=== PATIENT | male | born 1935 | race Caucasian/White ===

== ENCOUNTER 2023-06-01 13:20 | Inpatient (IN) | payer MEDICARE, OTHER ==
[~2023-06-01] VITALS: Ht 162.6 cm; Wt 59.4 kg
[2023-06-01] MEDS ORDERED: AMIN30LI2 PO (14:14)
[2023-06-01] MEDS ORDERED: ACET-2030 PO (14:14)
[2023-06-01] MEDS ORDERED: FERR-56 PO (14:14)
[2023-06-01] MEDS ORDERED: BISA10SU61 RC (14:14)
[2023-06-01] MEDS ORDERED: NA P133E RC (14:14)
[2023-06-01] MEDS ORDERED: DEXT38GE12 PO (14:14)
[2023-06-01] MEDS ORDERED: METF-442 PO (14:14)
[2023-06-01] MEDS ORDERED: ERGOCALCIFEROL PO (14:14)
[2023-06-01] MEDS ORDERED: MULT-594 PO (14:14)
[2023-06-01] MEDS ORDERED: OMEP20CA15 PO (14:14)
[2023-06-01] MEDS ORDERED: MAGN400O6 PO (14:14)
[2023-06-01] MEDS ORDERED: ACET325C7 PO (14:14)
[2023-06-01] MEDS ORDERED: ASCO500C18 PO (14:14)
[2023-06-01] MEDS ORDERED: AMLO-212 PO (14:14)
[2023-06-01] MEDS ORDERED: MIRT-121 PO (14:14)
[2023-06-01] MEDS ORDERED: ACET-2154 PO (14:14)
[2023-06-01] MEDS ORDERED: HC A30CR11 RC (14:14)
[2023-06-01 14:23] LABS: BASOPHILS # (AUTO) 0.1 K/UL (0.0-0.2); BASOPHILS % (AUTO) 1.2 % (0.0-2.0); EOSINOPHILS % (AUTO) 0.1 % (0.0-7.0); HEMATOCRIT 39.9 % (36.7-47.1); HEMOGLOBIN 13.5 g/dL (12.5-16.3); LYMPHOCYTES # (AUTO) 0.8 K/uL (0.8-4.8); LYMPHOCYTES % (AUTO) 16.9 % (20.5-51.5); MEAN CORPUSCULAR HEMOGLOBIN 31.4 uug (23.8-33.4); MEAN CORPUSCULAR HGB CONC 34 g/dL (32.5-36.3); MEAN CORPUSCULAR VOLUME 92.7 fL (73.0-96.2); MONOCYTES # (AUTO) 0.4 K/uL (0.1-1.30); MONOCYTES % (AUTO) 8.3 % (0.0-11.0); NEUTROPHILS # (AUTO) 3.3 K/uL (1.8-8.9); NEUTROPHILS % (AUTO) 73.5 % (38.5-71.5); PLATELET COUNT (AUTO) 118 K/uL (152-348); RED CELL DISTRIBUTION WIDTH 13.6 % (12.1-16.2); WHITE BLOOD COUNT (AUTO) 4.5 K/uL (3.6-10.2)
[2023-06-01 14:43] LABS: CALCIUM 9.2 mg/dL (8.5-10.1); CARBON DIOXIDE 23 mmol/L (21-32); CHLORIDE 101 mmol/L (98-107); CREATININE 1.5 mg/dL (0.6-1.3); GLUCOSE 119 mg/dL (74-106); POTASSIUM 4.2 mmol/L (3.5-5.1); SODIUM SERUM 135 mmol/L (136-145); UREA NITROGEN, BLOOD 25 mg/dL (7-18)
[2023-06-01] MEDS ORDERED: IBUPROFEN 400 MG TABLET PO ONE (14:45)
[2023-06-01 14:46] LABS: DIFFERENTIAL COMMENT 1
[2023-06-01] MEDS ORDERED: IBUPROFEN 400 MG TABLET ONE (14:48)
[2023-06-01 14:49] LABS: ETHANOL < 3 MG/DL (0-10)
[2023-06-01 14:57] LABS: ACETAMINOPHEN 6.8 ug/mL (10-30); ALANINE AMINOTRANSFERASE 16 U/L (16-63); ALKALINE PHOSPHATASE 153 U/L (50-136); ASPARTATE AMINOTRANSFERASE 35 U/L (15-37); BILIRUBIN,DIRECT 0.5 mg/dL (0.0-0.2); BILIRUBIN,TOTAL 1.1 mg/dL (0.2-1.0); TOTAL PROTEIN, SERUM 7.1 g/dL (6.4-8.2)
[2023-06-01 15:19] LABS: MAGNESIUM 1.5 mg/dL (1.8-2.4)
[2023-06-01 15:26] LABS: *BLOOD, URINE 1+ (NEGATIVE); *COLOR,URINE YELLOW (YELLOW); *KETONES,URINE TRACE (NEGATIVE); *UROBILINOGEN,URINE >=8.0 E.U./dl (NORMAL); LEUKOCYTE ESTERASE ,URINE 1+ (NEGATIVE); NITRITE, URINE NEGATIVE (NEGATIVE); PH,URINE 5.5 (5.0-8.0); UGLUCOSE NEGATIVE (NEGATIVE)
[2023-06-01 15:35] LABS: *PROTEIN,URINE 3+ (NEGATIVE)
[2023-06-01 15:36] LABS: *BILIRUBIN,URIN 1+ (NEGATIVE); *CLARITY,URINE CLOUDY (CLEAR)
[2023-06-01 15:45] LABS: *AMPHETAMINE, URINE NEGATIVE (NEGATIVE); *BARBITURATE, URINE NEGATIVE (NEGATIVE); *CANNABINOID, URINE NEGATIVE (NEGATIVE); *COCCAINE, URINE NEGATIVE (NEGATIVE); *OPIATE, URINE NEGATIVE (NEGATIVE); *PHENCYCLIDINE SCREEN,URINE NEGATIVE (NEGATIVE)
[2023-06-01] MEDS ORDERED: CYANOCOBALAMIN 1000 MCG/ML VIAL IM ONE (15:45)
[2023-06-01] MEDS ORDERED: MAGNESIUM CHLORIDE 64 MG TABLET.SA PO SCH (15:45)
[2023-06-01 15:46] LABS: BACTERIA,URINE MANY /HPF (NONE SEEN); SQUAMOUS EPITHELIAL CELL,UR FEW /HPF (NONE SEEN); WBC,URINE TNTC /HPF (0-3)
[2023-06-01 15:57] LABS: *BENZODIAZEPINE, URINE NEGATIVE (NEGATIVE)
[2023-06-01 15:58] LABS: FENTANYL, URINE NEGATIVE (NEGATIVE)
[2023-06-01] MEDS ORDERED: CYANOCOBALAMIN 1000 MCG/ML VIAL ONE (15:59)
[2023-06-01] MEDS ORDERED: MAG HYDROX/AL HYDROX/SIMETH 30 ML LIQUID UDC PO PRN (17:45)
[2023-06-01] MEDS ORDERED: LORAZEPAM 0.5 MG TABLET PO PRN (17:45)
[2023-06-01 18:36] VITALS: BP 121/62; TEMP 98; O2SAT 98
[2023-06-01 20:00] VITALS: BP 106/64; TEMP 97.7; O2SAT 97
[2023-06-01] MEDS ORDERED: BISACODYL 10 MG SUPP.RECT RC PRN (21:00)
[2023-06-01] MEDS: ZOLPIDEM 5 MG TABLET PO PRN (21:20)
[2023-06-02] MEDS: PANTOPRAZOLE SODIUM 40 MG TABLET.DR PO SCH (06:58)
[2023-06-02 08:04] VITALS: BP 142/81; TEMP 98.1; O2SAT 96
[2023-06-02 08:49] LABS: MAGNESIUM 1.5 mg/dL (1.8-2.4)
[2023-06-02 08:52] LABS: ALANINE AMINOTRANSFERASE 28 U/L (16-63); ALBUMIN 2.8 g/dL (3.4-5.0); ALKALINE PHOSPHATASE 130 U/L (50-136); ASPARTATE AMINOTRANSFERASE 36 U/L (15-37); BILIRUBIN,TOTAL 1.1 mg/dL (0.2-1.0); CALCIUM 8.4 mg/dL (8.5-10.1); CARBON DIOXIDE 26 mmol/L (21-32); CHLORIDE 101 mmol/L (98-107); CREATININE 1.4 mg/dL (0.6-1.3); GLUCOSE 117 mg/dL (74-106); POTASSIUM 3.8 mmol/L (3.5-5.1); SODIUM SERUM 136 mmol/L (136-145); TOTAL PROTEIN, SERUM 6.8 g/dL (6.4-8.2); UREA NITROGEN, BLOOD 25 mg/dL (7-18)
[2023-06-02 09:03] LABS: THYROID STIMULATING HORMONE 1.617 mIU/mL (0.358-3.740)
[2023-06-02] MEDS: MULTIVITAMINS,THERAPEUTIC TABLET PO SCH (09:10)
[2023-06-02] MEDS: METFORMIN HCL 500 MG TABLET PO SCH ×2 (09:10→17:31)
[2023-06-02] MEDS: ASCORBIC ACID 500 MG TABLET PO SCH (09:10)
[2023-06-02] MEDS: FERROUS SULFATE 325 MG TABEC PO SCH (09:11)
[2023-06-02] MEDS: PROTEIN SUPPLEMENT (PROSTAT) 30 ML LIQUID PO SCH (09:12)
[2023-06-02] MEDS ORDERED: MAGNESIUM OXIDE 400 MG TABLET PO ONE (12:55)
[2023-06-02] MEDS: ACETAMINOPHEN 325 MG TABLET PO PRN (14:28)
[2023-06-02 16:05] VITALS: BP 139/73; TEMP 98; O2SAT 96
[2023-06-02] MEDS: DIVALPROEX SPRINKLE 125 MG CAP.SPRINK PO SCH (16:45)
[2023-06-02 20:34] VITALS: BP 100/50; TEMP 98; O2SAT 99
[2023-06-02] MEDS: CEphaleXIN 500 MG CAPSULE PO SCH (21:12)
[2023-06-02] MEDS: MEMANTINE HCL 5 MG TABLET PO SCH (21:12)
[2023-06-02] MEDS: MIRTAZAPINE 15 MG TABLET PO SCH (21:12)
[2023-06-03] MEDS: PANTOPRAZOLE SODIUM 40 MG TABLET.DR PO SCH (06:28)
[2023-06-03 07:50] VITALS: BP 103/58; TEMP 98.2; O2SAT 98
[2023-06-03] MEDS: PROTEIN SUPPLEMENT (PROSTAT) 30 ML LIQUID PO SCH (08:00)
[2023-06-03] MEDS: METFORMIN HCL 500 MG TABLET PO SCH ×2 (09:06→17:41)
[2023-06-03] MEDS: CEphaleXIN 500 MG CAPSULE PO SCH ×2 (09:06→20:48)
[2023-06-03] MEDS: FERROUS SULFATE 325 MG TABEC PO SCH (09:07)
[2023-06-03] MEDS: DIVALPROEX SPRINKLE 125 MG CAP.SPRINK PO SCH ×2 (09:07→17:40)
[2023-06-03] MEDS: MEMANTINE HCL 5 MG TABLET PO SCH ×2 (09:07→20:48)
[2023-06-03] MEDS: MULTIVITAMINS,THERAPEUTIC TABLET PO SCH (09:07)
[2023-06-03] MEDS: ASCORBIC ACID 500 MG TABLET PO SCH (09:07)
[2023-06-03 15:22] VITALS: BP 122/69; TEMP 98; O2SAT 98
[2023-06-03 19:56] VITALS: BP 114/62; TEMP 98.1; O2SAT 96
[2023-06-03] MEDS: MIRTAZAPINE 15 MG TABLET PO SCH (20:48)
[2023-06-03] MEDS: ERGOCALCIFEROL 50,000 UNIT CAPSULE PO SCH (20:48)
[2023-06-04] MEDS: PANTOPRAZOLE SODIUM 40 MG TABLET.DR PO SCH (06:05)
[2023-06-04 08:00] VITALS: BP 106/57; TEMP 97.6; O2SAT 97
[2023-06-04] MEDS: ASCORBIC ACID 500 MG TABLET PO SCH (08:16)
[2023-06-04] MEDS: FERROUS SULFATE 325 MG TABEC PO SCH (08:16)
[2023-06-04] MEDS: MEMANTINE HCL 5 MG TABLET PO SCH ×2 (08:16→20:25)
[2023-06-04] MEDS: MULTIVITAMINS,THERAPEUTIC TABLET PO SCH (08:16)
[2023-06-04] MEDS: DIVALPROEX SPRINKLE 125 MG CAP.SPRINK PO SCH ×2 (08:16→16:27)
[2023-06-04] MEDS: CEphaleXIN 500 MG CAPSULE PO SCH ×2 (08:16→20:25)
[2023-06-04] MEDS: METFORMIN HCL 500 MG TABLET PO SCH (08:16)
[2023-06-04] MEDS: PROTEIN SUPPLEMENT (PROSTAT) 30 ML LIQUID PO SCH (08:17)
[2023-06-04 16:00] VITALS: BP 100/61; TEMP 97.8; O2SAT 97
[2023-06-04 19:52] VITALS: BP 110/56; TEMP 97.9; O2SAT 96
[2023-06-04] MEDS: MIRTAZAPINE 15 MG TABLET PO SCH (20:25)
[2023-06-05] MEDS: PANTOPRAZOLE SODIUM 40 MG TABLET.DR PO SCH (06:18)
[2023-06-05 07:30] VITALS: BP 123/63; TEMP 98.2; O2SAT 97
[2023-06-05] MEDS: FERROUS SULFATE 325 MG TABEC PO SCH (08:39)
[2023-06-05] MEDS: MEMANTINE HCL 5 MG TABLET PO SCH ×2 (08:39→20:41)
[2023-06-05] MEDS: MULTIVITAMINS,THERAPEUTIC TABLET PO SCH (08:39)
[2023-06-05] MEDS: CEphaleXIN 500 MG CAPSULE PO SCH (08:39)
[2023-06-05] MEDS: NEPRO (VANILLA) 237 ML CAN PO SCH (08:40)
[2023-06-05] MEDS: ASCORBIC ACID 500 MG TABLET PO SCH (08:40)
[2023-06-05] MEDS: DIVALPROEX SPRINKLE 125 MG CAP.SPRINK PO SCH ×2 (08:40→16:06)
[2023-06-05 09:05] LABS: CALCIUM 9.3 mg/dL (8.5-10.1); CARBON DIOXIDE 27 mmol/L (21-32); CHLORIDE 104 mmol/L (98-107); CREATININE 1.5 mg/dL (0.6-1.3); GLUCOSE 117 mg/dL (74-106); MAGNESIUM 1.7 mg/dL (1.8-2.4); POTASSIUM 4.2 mmol/L (3.5-5.1); SODIUM SERUM 140 mmol/L (136-145); UREA NITROGEN, BLOOD 42 mg/dL (7-18)
[2023-06-05] MEDS: NITROFURANTOIN/NITROFURAN MAC 100 MG CAPSULE PO SCH ×2 (14:14→20:41)
[2023-06-05 15:41] VITALS: BP 117/72; TEMP 98.2; O2SAT 98
[2023-06-05 19:59] VITALS: BP 123/67; TEMP 98; O2SAT 96
[2023-06-05] MEDS: MIRTAZAPINE 15 MG TABLET PO SCH (20:41)
[2023-06-06] MEDS: ACETAMINOPHEN 325 MG TABLET PO PRN (05:16)
[2023-06-06] MEDS: PANTOPRAZOLE SODIUM 40 MG TABLET.DR PO SCH (06:18)
[2023-06-06 07:48] VITALS: TEMP 97.4
[2023-06-06] MEDS: ASCORBIC ACID 500 MG TABLET PO SCH (09:39)
[2023-06-06] MEDS: MEMANTINE HCL 5 MG TABLET PO SCH ×2 (09:39→22:05)
[2023-06-06] MEDS: DIVALPROEX SPRINKLE 125 MG CAP.SPRINK PO SCH ×2 (09:39→17:32)
[2023-06-06] MEDS: NITROFURANTOIN/NITROFURAN MAC 100 MG CAPSULE PO SCH ×2 (09:39→22:06)
[2023-06-06] MEDS: FERROUS SULFATE 325 MG TABEC PO SCH (09:39)
[2023-06-06] MEDS: NEPRO (VANILLA) 237 ML CAN PO SCH (09:40)
[2023-06-06] MEDS: MULTIVITAMINS,THERAPEUTIC TABLET PO SCH (09:40)
[2023-06-06 16:00] VITALS: BP 109/63; TEMP 97.5
[2023-06-06 20:00] VITALS: BP 94/41; TEMP 98; O2SAT 97
[2023-06-06] MEDS: MIRTAZAPINE 15 MG TABLET PO SCH (22:06)
[2023-06-06] MEDS: ZOLPIDEM 5 MG TABLET PO PRN (22:06)
[2023-06-07] MEDS: PANTOPRAZOLE SODIUM 40 MG TABLET.DR PO SCH (07:00)
[2023-06-07] MEDS: MULTIVITAMINS,THERAPEUTIC TABLET PO SCH (08:43)
[2023-06-07] MEDS: NITROFURANTOIN/NITROFURAN MAC 100 MG CAPSULE PO SCH ×2 (08:43→20:29)
[2023-06-07] MEDS: ASCORBIC ACID 500 MG TABLET PO SCH (08:43)
[2023-06-07] MEDS: MEMANTINE HCL 5 MG TABLET PO SCH ×2 (08:43→20:29)
[2023-06-07] MEDS: DIVALPROEX SPRINKLE 125 MG CAP.SPRINK PO SCH ×2 (08:43→17:18)
[2023-06-07] MEDS: FERROUS SULFATE 325 MG TABEC PO SCH (08:43)
[2023-06-07] MEDS: ACETAMINOPHEN 325 MG TABLET PO PRN ×2 (08:44→17:19)
[2023-06-07 16:30] VITALS: BP 97/49; TEMP 97.4; O2SAT 96
[2023-06-07 20:19] VITALS: BP 106/59; TEMP 98; O2SAT 97
[2023-06-07] MEDS: MIRTAZAPINE 15 MG TABLET PO SCH (20:29)
[2023-06-08] MEDS: ZOLPIDEM 5 MG TABLET PO PRN (01:49)
[2023-06-08] MEDS: PANTOPRAZOLE SODIUM 40 MG TABLET.DR PO SCH (06:14)
[2023-06-08] MEDS: MULTIVITAMINS,THERAPEUTIC TABLET PO SCH (08:29)
[2023-06-08] MEDS: NITROFURANTOIN/NITROFURAN MAC 100 MG CAPSULE PO SCH ×2 (08:30→20:58)
[2023-06-08] MEDS: MEMANTINE HCL 5 MG TABLET PO SCH ×2 (08:30→20:58)
[2023-06-08] MEDS: FERROUS SULFATE 325 MG TABEC PO SCH (08:30)
[2023-06-08] MEDS: ASCORBIC ACID 500 MG TABLET PO SCH (08:30)
[2023-06-08] MEDS: DIVALPROEX SPRINKLE 125 MG CAP.SPRINK PO SCH ×2 (08:30→17:20)
[2023-06-08 09:34] VITALS: TEMP 97; O2SAT 95
[2023-06-08] MEDS ORDERED: MICONAZOLE NITRATE CREAM 15 GM TUBE TOP SCH (10:00)
[2023-06-08] MEDS: MICONAZOLE NITRATE TP SCH ×2 (10:53→17:21)
[2023-06-08 20:00] VITALS: BP 128/74; TEMP 98; O2SAT 99
[2023-06-08] MEDS: MIRTAZAPINE 15 MG TABLET PO SCH (20:58)
[2023-06-08] MEDS: ACETAMINOPHEN 325 MG TABLET PO PRN (20:58)
[2023-06-09] MEDS: PANTOPRAZOLE SODIUM 40 MG TABLET.DR PO SCH (06:26)
[2023-06-09] MEDS: MAGNESIUM HYDROXIDE 30 ML LIQUID UDC PO PRN ×2 (06:26→21:14)
[2023-06-09 07:30] VITALS: BP 123/53; TEMP 97.4; O2SAT 97
[2023-06-09] MEDS: MICONAZOLE NITRATE TP SCH ×2 (08:10→17:09)
[2023-06-09] MEDS: NITROFURANTOIN/NITROFURAN MAC 100 MG CAPSULE PO SCH ×2 (08:10→20:16)
[2023-06-09] MEDS: ASCORBIC ACID 500 MG TABLET PO SCH (08:10)
[2023-06-09] MEDS: MULTIVITAMINS,THERAPEUTIC TABLET PO SCH (08:10)
[2023-06-09] MEDS: DIVALPROEX SPRINKLE 125 MG CAP.SPRINK PO SCH ×2 (08:10→17:09)
[2023-06-09] MEDS: FERROUS SULFATE 325 MG TABEC PO SCH (08:10)
[2023-06-09] MEDS: MEMANTINE HCL 5 MG TABLET PO SCH ×2 (08:10→20:16)
[2023-06-09 15:30] VITALS: BP 119/59; TEMP 97.8; O2SAT 97
[2023-06-09 20:00] VITALS: BP 151/79; TEMP 98; O2SAT 99
[2023-06-09] MEDS: MIRTAZAPINE 15 MG TABLET PO SCH (20:16)
[2023-06-10] MEDS: PANTOPRAZOLE SODIUM 40 MG TABLET.DR PO SCH (06:56)
[2023-06-10 08:05] VITALS: BP 94/66; TEMP 98.2; O2SAT 96
[2023-06-10] MEDS: ASCORBIC ACID 500 MG TABLET PO SCH (09:51)
[2023-06-10] MEDS: FERROUS SULFATE 325 MG TABEC PO SCH (09:51)
[2023-06-10] MEDS: DIVALPROEX SPRINKLE 125 MG CAP.SPRINK PO SCH ×2 (09:51→17:36)
[2023-06-10] MEDS: MEMANTINE HCL 5 MG TABLET PO SCH ×2 (09:51→20:41)
[2023-06-10] MEDS: NITROFURANTOIN/NITROFURAN MAC 100 MG CAPSULE PO SCH ×2 (09:51→20:41)
[2023-06-10] MEDS: MICONAZOLE NITRATE TP SCH ×2 (09:53→17:45)
[2023-06-10] MEDS: MULTIVITAMINS,THERAPEUTIC TABLET PO SCH (09:53)
[2023-06-10 16:14] VITALS: BP 138/88; TEMP 98; O2SAT 97
[2023-06-10 20:00] VITALS: BP 115/60; TEMP 98.1; O2SAT 94
[2023-06-10] MEDS: MIRTAZAPINE 15 MG TABLET PO SCH (20:41)
[2023-06-10] MEDS: ERGOCALCIFEROL 50,000 UNIT CAPSULE PO SCH (20:45)
[2023-06-11] MEDS: PANTOPRAZOLE SODIUM 40 MG TABLET.DR PO SCH (06:40)
[2023-06-11 07:42] VITALS: BP 121/67; TEMP 98.1; O2SAT 97
[2023-06-11] MEDS: MEMANTINE HCL 5 MG TABLET PO SCH ×2 (08:16→20:40)
[2023-06-11] MEDS: ASCORBIC ACID 500 MG TABLET PO SCH (08:16)
[2023-06-11] MEDS: DIVALPROEX SPRINKLE 125 MG CAP.SPRINK PO SCH ×2 (08:17→16:41)
[2023-06-11] MEDS: NITROFURANTOIN/NITROFURAN MAC 100 MG CAPSULE PO SCH ×2 (08:17→20:40)
[2023-06-11] MEDS: FERROUS SULFATE 325 MG TABEC PO SCH (08:17)
[2023-06-11] MEDS: MULTIVITAMINS,THERAPEUTIC TABLET PO SCH (08:17)
[2023-06-11] MEDS: NEPRO (VANILLA) 237 ML CAN PO SCH (08:18)
[2023-06-11] MEDS: MICONAZOLE NITRATE TP SCH ×2 (08:19→16:41)
[2023-06-11] MEDS: ACETAMINOPHEN 325 MG TABLET PO PRN (10:52)
[2023-06-11 16:02] VITALS: BP 140/75; TEMP 98; O2SAT 97
[2023-06-11 20:00] VITALS: BP 124/65; TEMP 97.9; O2SAT 98
[2023-06-11] MEDS: MIRTAZAPINE 15 MG TABLET PO SCH (20:40)
[2023-06-12] MEDS: PANTOPRAZOLE SODIUM 40 MG TABLET.DR PO SCH (06:05)
[2023-06-12 07:30] VITALS: BP 132/76; TEMP 89.9; O2SAT 98
[2023-06-12] MEDS: MULTIVITAMINS,THERAPEUTIC TABLET PO SCH (09:30)
[2023-06-12] MEDS: DIVALPROEX SPRINKLE 125 MG CAP.SPRINK PO SCH ×2 (09:30→17:04)
[2023-06-12] MEDS: MEMANTINE HCL 5 MG TABLET PO SCH ×2 (09:30→20:52)
[2023-06-12] MEDS: NITROFURANTOIN/NITROFURAN MAC 100 MG CAPSULE PO SCH (09:30)
[2023-06-12] MEDS: ASCORBIC ACID 500 MG TABLET PO SCH (09:31)
[2023-06-12] MEDS: MICONAZOLE NITRATE TP SCH ×2 (09:33→17:05)
[2023-06-12] MEDS: NEPRO (VANILLA) 237 ML CAN PO SCH (09:34)
[2023-06-12] MEDS: FERROUS SULFATE 325 MG TABEC PO SCH (09:34)
[2023-06-12] MEDS ORDERED: LACTULOSE 20 G/30 ML LIQUID UDC PO SCH (12:00)
[2023-06-12] MEDS: LACTULOSE 20 G/30 ML LIQUID UDC PO SCH ×2 (13:07→17:04)
[2023-06-12 16:00] VITALS: BP 110/68; TEMP 98; O2SAT 96
[2023-06-12 20:00] VITALS: BP 136/70; TEMP 96.2; O2SAT 94
[2023-06-12] MEDS: MIRTAZAPINE 15 MG TABLET PO SCH (20:52)
[2023-06-12] MEDS: ACETAMINOPHEN 325 MG TABLET PO PRN (21:01)
[2023-06-13] MEDS: PANTOPRAZOLE SODIUM 40 MG TABLET.DR PO SCH (07:30)
[2023-06-13 07:47] LABS: BASOPHILS % (AUTO) 0.6 % (0.0-2.0); EOSINOPHILS # (AUTO) 0.3 K/uL (0.0-0.7); EOSINOPHILS % (AUTO) 7.4 % (0.0-7.0); HEMATOCRIT 37.7 % (36.7-47.1); HEMOGLOBIN 12.9 g/dL (12.5-16.3); LYMPHOCYTES # (AUTO) 1.4 K/uL (0.8-4.8); LYMPHOCYTES % (AUTO) 36.9 % (20.5-51.5); MEAN CORPUSCULAR HEMOGLOBIN 31.4 uug (23.8-33.4); MEAN CORPUSCULAR HGB CONC 34 g/dL (32.5-36.3); MEAN CORPUSCULAR VOLUME 91.6 fL (73.0-96.2); MONOCYTES # (AUTO) 0.4 K/uL (0.1-1.30); MONOCYTES % (AUTO) 10.7 % (0.0-11.0); NEUTROPHILS # (AUTO) 1.6 K/uL (1.8-8.9); NEUTROPHILS % (AUTO) 44.4 % (38.5-71.5); PLATELET COUNT (AUTO) 152 K/uL (152-348); RED BLOOD CELL COUNT(AUTO) 4.11 MIL/uL (4.06-5.63); RED CELL DISTRIBUTION WIDTH 13.2 % (12.1-16.2); WHITE BLOOD COUNT (AUTO) 3.7 K/uL (3.6-10.2)
[2023-06-13 07:49] LABS: DIFFERENTIAL COMMENT 1
[2023-06-13 08:02] VITALS: BP 121/57; TEMP 97.6; O2SAT 94
[2023-06-13 08:08] LABS: ALANINE AMINOTRANSFERASE 30 U/L (16-63); ALBUMIN 2.5 g/dL (3.4-5.0); ALKALINE PHOSPHATASE 177 U/L (50-136); ASPARTATE AMINOTRANSFERASE 46 U/L (15-37); BILIRUBIN,TOTAL 0.7 mg/dL (0.2-1.0); CALCIUM 8.8 mg/dL (8.5-10.1); CARBON DIOXIDE 30 mmol/L (21-32); CHLORIDE 104 mmol/L (98-107); CREATININE 1.5 mg/dL (0.6-1.3); GLUCOSE 106 mg/dL (74-106); POTASSIUM 4.1 mmol/L (3.5-5.1); SODIUM SERUM 139 mmol/L (136-145); TOTAL PROTEIN, SERUM 6.5 g/dL (6.4-8.2); UREA NITROGEN, BLOOD 25 mg/dL (7-18)
[2023-06-13] MEDS: FERROUS SULFATE 325 MG TABEC PO SCH (09:07)
[2023-06-13] MEDS: LACTULOSE 20 G/30 ML LIQUID UDC PO SCH (09:07)
[2023-06-13] MEDS: DIVALPROEX SPRINKLE 125 MG CAP.SPRINK PO SCH (09:07)
[2023-06-13] MEDS: MULTIVITAMINS,THERAPEUTIC TABLET PO SCH (09:07)
[2023-06-13] MEDS: MEMANTINE HCL 5 MG TABLET PO SCH (09:07)
[2023-06-13] MEDS: ASCORBIC ACID 500 MG TABLET PO SCH (09:07)
[2023-06-13] MEDS: MICONAZOLE NITRATE TP SCH (09:08)
[2023-06-13] MEDS: NEPRO (VANILLA) 237 ML CAN PO SCH (09:16)
== END 2023-06-13 12:30 | DRG 885 ==
LOC: ER 13:20 → GPS 17:09
PROVIDERS: ADMIT Psychiatry & Neurology Psychiatry; ATTEND Nurse Practitioner Family
DX: F31.5 Bipolar disorder, current episode depressed, severe, with psychotic features (principal); F01.511 Vascular dementia, unspecified severity, with agitation; N17.0 Acute kidney failure with tubular necrosis; E44.1 Mild protein-calorie malnutrition; N39.0 Urinary tract infection, site not specified; F01.518 Vascular dementia, unspecified severity, with other behavioral disturbance; E87.1 Hypo-osmolality and hyponatremia; E44.0 Moderate protein-calorie malnutrition; E11.22 Type 2 diabetes mellitus with diabetic chronic kidney disease; I12.9 Hypertensive chronic kidney disease with stage 1 through stage 4 chronic kidney disease, or unspecified chronic kidney disease; N18.2 Chronic kidney disease, stage 2 (mild); K21.9 Gastro-esophageal reflux disease without esophagitis; D63.8 Anemia in other chronic diseases classified elsewhere; E03.9 Hypothyroidism, unspecified; B96.20 Unspecified Escherichia coli [E. coli] as the cause of diseases classified elsewhere; Z91.81 History of falling; Z88.8 Allergy status to other drugs, medicaments and biological substances; M48.00 Spinal stenosis, site unspecified; M15.9 Polyosteoarthritis, unspecified; I69.398 Other sequelae of cerebral infarction; E83.42 Hypomagnesemia; E88.09 Other disorders of plasma-protein metabolism, not elsewhere classified; Z68.22 Body mass index [BMI] 22.0-22.9, adult; K59.00 Constipation, unspecified
CPT/HCPCS: 36415; 71045; 74018; 80164; 83735; 84443; 85025; 93005; G0480; J3420